=== PATIENT | male | born 2000 | race Caucasian/White ===

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

== ENCOUNTER 2020-06-15 20:15 | Emergency (ER) | payer BC, SELFPAY ==
[2020-06-15 20:19] VITALS: BP 143/95; PULSE 121; RESP 16; TEMP 36.9; O2SAT 99
--- NOTE | 2020-06-15 20:33 | ED.ABDPAIN ---
HPI - Abdominal Pain General Chief Complaint: Abdominal Pain Stated Complaint: stomach and lower intestine pain Time Seen by Provider: 06/15/20 20:19 Source: patient Mode of arrival: ambulatory Limitations: no limitations History of Present Illness HPI narrative: Patient presents with acute exacerbation of chronic LLQ abdominal pain that is at times accompanied by nausea and diarrhea which has worsened over the past two days. Patient states he has had these intermittent symptoms off and on for years. He states he has a GI appointment but couldn't sleep tonight so he came to the ER. Patient has not had vomiting. Related Data Home Medications Medication Instructions Recorded Confirmed Marijuana DAILY 11/20/19 hyoscyamine sulfate mg 06/15/20 06/15/20 Allergies Allergy/AdvReac Type Severity Reaction Status Date / Time Sulfa (Sulfonamide AdvReac Mild Anxiety Verified 06/15/20 20:24 Antibiotics) Review of Systems Review of Systems: Narrative: CONSTITUTIONAL: Denies fever, chills, or sweats. EYES: Denies visual changes, redness, or discharge. ENT: Denies rhinorrhea, congestion, sore throat, or otalgia. CARDIOVASCULAR: Denies chest pain, palpitations, or edema. RESPIRATORY: Denies cough or dyspnea. GASTROINTESTINAL: reports abdominal pain, nausea Denies vomiting, or diarrhea. GENITOURINARY: Denies dysuria or hematuria. SKIN: Denies rash or itching. MUSCULOSKELETAL: Denies back pain, myalgia, or joint pain NEUROLOGIC: Denies headache, numbness, dizziness, or weakness. PSYCHIATRIC: Denies anxiety or depression. [facility] Family History Family History Other Diabetes mellitus Hypertension Social History Social History (Updated 11/20/19 @ 16:24 by Beth Centeno CNP) Smoking status: Former smoker Alcohol intake: former Other substance usage details: Currently in medical marijuana program Gender identity (if verbalized by the patient): Male Exam Narrative: Exam Narrative: GENERAL: Well-appearing, well-nourished. HEAD: Normocephalic, atraumatic. EYES: PERRLA and EOMI. NECK: No loss of ROM. CHEST: Clear to auscultation. No respiratory distress. No wheezes rales or rhonchi HEART: Regular rate and rhythm. Normal peripheral pulses. ABDOMEN: Soft, nontender, nondistended, normal active bowel sounds. EXTREMITIES: No acute changes in ROM. No edema. SKIN: Warm, dry, no rash. NEURO: No focal deficits. Alert and oriented x3. PSYCH: Normal mood and affect. Course Vital Signs Vital signs: Vital Signs Temperature 98.5 F 06/15/20 20:19 Pulse Rate 121 H 06/15/20 20:19 Respiratory Rate 16 06/15/20 20:19 Blood Pressure 143/95 H 06/15/20 20:19 Pulse Oximetry 99 06/15/20 20:19 Temperature 98.5 F 06/15/20 20:19 Pulse Rate 121 H 06/15/20 20:19 Respiratory Rate 16 06/15/20 20:19 Blood Pressure 143/95 H 06/15/20 20:19 Pulse Oximetry 99 06/15/20 20:19 MDM - Abdominal Pain MDM Narrative Medical decision making narrative: Patient has pulled out his IV, is writhing around in the bed stating he is in pain but refusing to allow the nurse to restart the IV. He states he wants to sign out AMA. Patient has been told that we are working up his complaints and that we are waiting for CMP to make sure he can handle CT with contrast. Patient is adamant about signing out AMA despite warning he could have worsened condition or even and he verbalizes understanding. Differential Diagnosis Differential diagnosis: Likely abdominal pain, acute appendicitis, calculus of kidney, constipation, diverticulitis, endometriosis, gastroenteritis, pancreatitis and small bowel obstruction Lab Data Result diagrams: 06/15/20 20:38 06/15/20 20:38 Labs: Lab Results 06/15/20 06/15/20 06/15/20 Range/Units 20:38 20:38 20:38 WBC 14.9 H (4.5-10.0) K/mm3 RBC 4.85 (4.6-6.20) M/mm3 Hgb 16.1 (14.0-18.0) g/dL
[2020-06-15] MEDS: SODIUM CHLORIDE 0.9% IV 1,000 ML 999 ML IV CONT (20:39)
[2020-06-15] MEDS: METOCLOPRAMIDE HCL INJ 10 MG/2 ML VIAL IV PUSH (20:39)
[2020-06-15 20:43] LABS: Basophils Percent Auto 0.2 % (0.2-1.2); Eosinophils Percent Auto 0.1 % (0-4.4); Hematocrit 45.6 % (42.0-52.0); Hemoglobin 16.1 g/dL (14.0-18.0); Immature Granulocyte Absolute 0.06 K/mm3 (0.00-0.031); Immature Granulocyte Percent A 0.4 % (0-0.5); Lymphocytes Absolute Auto 1.25 K/mm3 (0.9-3.2); Lymphocytes Percent Auto 8.4 % (18.3-44.2); Mean Corpuscular HGB Conc 35.3 g/dl (32-36); Mean Corpuscular Hemoglobin 33.2 pg (26-34); Mean Platelet Volume 9.8 fl (7.4-10.4); Monocytes Percent Auto 6.7 % (2.6-8.5); Neutrophils Absolute Auto 12.6 K/mm3 (1.3-6.7); Neutrophils Percent Auto 84.2 % (45.5-73.1); Platelet Count Result 263 k/mm3 (150-375); Red Blood Count 4.85 M/mm3 (4.6-6.20); Red Cell Distribution Width 11.9 % (11.5-14.5); White Blood Count 14.9 K/mm3 (4.5-10.0)
--- NOTE | 2020-06-15 20:50 | PC.NURSE ---
Pt IV came out. He was moving around in pain. I cleaned him up and told him we would need to start another IV. Pt said he does not want another IV. I spoke with EDP and she said he needs another IV to further treat him.
[2020-06-15 20:56] LABS: Lipase 68 U/L (23-300)
[2020-06-15 20:57] LABS: Alanine Aminotransferase 33 U/L (4-50); Albumin Level 4.4 g/dL (3.7-5.6); Alkaline Phosphatase 74 U/L (58-237); Anion Gap 10 mmol/L (8-16); Aspartate Amino Transferase 29 U/L (17-59); Bilirubin,Total 0.3 mg/dL (0.2-1.3); Blood Urea Nitrogen 16 mg/dL (8-21); Calcium 9.1 mg/dL (8.9-10.7); Carbon Dioxide 27 mmol/L (22-30); Chloride 101 mmol/L (98-107); Estimated CRCL calculation 115 ml/min; Estimated Glomerular Filt Rate > 60; Glucose 207 mg/dL (75-110); Potassium 4.1 mmol/L (3.4-5.0); Sodium 138 mmol/L (134-143)
--- NOTE | 2020-06-15 21:07 | PC.NURSE ---
Pt explained that we need another IV to get a CT on him especially since he is diaphoretic and has a white blood cell count. Pt still declined. Pt made aware that he would have to sign out against medical advice if he leaves. EDP made aware. Pt again explained leaving could result in worsening condition or . pt confirmed understanding but still chose to leave. Pt signed paperwork and left.
== END 2020-06-15 21:10 | disposition left against medical advice (07) ==
PROVIDERS: Physician Assistant; Emergency Provider Emergency Medicine; PCP Pediatrics
DX: R10.32 Left lower quadrant pain (principal)
CPT/HCPCS: 36415; 80053; 83690; 85025; 96374; 99284; J2765; J7030

== ENCOUNTER 2020-07-16 09:10 | Emergency (ER) | payer BC, SELFPAY ==
--- NOTE | ~2020-07-16 | CT_ITS ---
EXAMINATION: CT abdomen pelvis w con DATE: 07/16/2020 10:11 INDICATION: Low abdominal pain. TECHNIQUE: Computed tomography (CT) of the abdomen and pelvis was performed with 100 mL Omnipaque 350 intravenous contrast. Automated exposure control and iterative reconstruction technique were employe d. The dose-length product was 296.19 mGy-cm. COMPARISON: None. FINDINGS: The visualized portions of the lung bases are clear without pneumonia or pleural effusion. The heart size is normal. No pericardial effusion. The liver, gallbladder, spleen, pancreas, adrenal glands, and right kidney are normal. There is a 4 mm cyst in left kidney. There are no dilated loops of bowel. The appendix is normal. There are no pathologically enlarged lymph nodes. There is no free intraperitoneal fluid. The bones are unremarkable. IMPRESSION: 1. No etiology for the patient's symptoms. Reviewed, dictated and finalized at location B. ALARM INSPECTOR
[2020-07-16 09:15] VITALS: BP 138/90; PULSE 118; RESP 18; TEMP 36.3; O2SAT 99
[2020-07-16 09:34] LABS: Basophils Absolute Auto 0.1 K/mm3 (0.0-0.1); Basophils Percent Auto 0.4 % (0.2-1.2); Eosinophils Percent Auto 0.2 % (0-4.4); Hematocrit 48.3 % (42.0-52.0); Immature Granulocyte Absolute 0.05 K/mm3 (0.00-0.031); Immature Granulocyte Percent A 0.4 % (0-0.5); Lymphocytes Absolute Auto 1.49 K/mm3 (0.9-3.2); Lymphocytes Percent Auto 12.2 % (18.3-44.2); Mean Corpuscular HGB Conc 35.2 g/dl (32-36); Mean Corpuscular Hemoglobin 33.4 pg (26-34); Mean Corpuscular Volume 94.9 fl (80-100); Mean Platelet Volume 9.1 fl (7.4-10.4); Monocytes Percent Auto 8.1 % (2.6-8.5); Neutrophils Absolute Auto 9.6 K/mm3 (1.3-6.7); Neutrophils Percent Auto 78.7 % (45.5-73.1); Platelet Count Result 245 k/mm3 (150-375); Red Blood Count 5.09 M/mm3 (4.6-6.20); Red Cell Distribution Width 12.2 % (11.5-14.5); White Blood Count 12.2 K/mm3 (4.5-10.0)
[2020-07-16 09:46] LABS: Alanine Aminotransferase 90 U/L (4-50); Albumin Level 4.6 g/dL (3.5-5.1); Alkaline Phosphatase 72 U/L (38-126); Anion Gap 4 mmol/L (8-16); Aspartate Amino Transferase 38 U/L (17-59); Bilirubin,Total 0.5 mg/dL (0.2-1.3); Blood Urea Nitrogen 19 mg/dL (9-20); Calcium 9.4 mg/dL (8.4-10.2); Carbon Dioxide 33 mmol/L (22-30); Chloride 99 mmol/L (98-107); Estimated CRCL calculation 92 ml/min; Estimated Glomerular Filt Rate > 60; Glucose 119 mg/dL (75-110); Lipase 38 U/L (23-300); Potassium 4.4 mmol/L (3.4-5.0); Sodium 136 mmol/L (137-145)
[2020-07-16] MEDS: SODIUM CHLORIDE 0.9% IV 1,000 ML 999 ML IV CONT (09:48)
[2020-07-16] MEDS: METOCLOPRAMIDE HCL INJ 10 MG/2 ML VIAL IV PUSH (09:48)
[2020-07-16 09:58] LABS: Add Urine Microscopic? NO; Appearance Urine Clear (Clear); Bilirubin Urine Negative (Negative); Blood Urine Negative (Negative); Color Urine Yellow (Yellow); Glucose Urine UA Negative (Negative); Ketones Urine Negative (Negative); Leukocyte Esterase Ur Negative LEU/UL (Negative); Nitrate Urine Negative (Negative); Protein Urine Negative (Negative); Specific Grav Ur 1.017 (1.001-1.035); Urobilinogen Urine Negative mg/dL (<2.0)
--- NOTE | 2020-07-16 11:09 | ED.GENADULT ---
HPI - General Adult General Chief complaint: Abdominal Pain Stated complaint: abd pain, decreased appetite Time Seen by Provider: 07/16/20 09:31 History of Present Illness HPI narrative: Patient is a 20-year-old gentleman who presents the emergency department with chief complaint of left lower quadrant abdominal pain. Patient reports he has history of IBS and takes Levsin and also is on a fiber supplement. The patient states that he started having cramping in his abdomen reports no blood in his bowel movements reports no problems urinating denies fever. Patient states he took the Levsin and his pain is doing much better at this time patient reports he has a appointment with his GI doctor in the first part of July. Patient states that today the pain was a little bit improved with the Levsin but states he was still very uncomfortable. Patient denies vomiting or diarrhea Related Data Home Medications Medication Instructions Recorded Confirmed Marijuana DAILY 11/20/19 hyoscyamine sulfate mg 06/15/20 06/15/20 Allergies Allergy/AdvReac Type Severity Reaction Status Date / Time Sulfa (Sulfonamide AdvReac Mild Anxiety Verified 07/16/20 09:26 Antibiotics) Review of Systems Review of Systems: Narrative: A 10 system review of systems was completed on the patient and is negative except for what is stated in the HPI. Nursing and ancillary documentation was reviewed. [facility] Family History Family History Other Diabetes mellitus Hypertension Social History Social History Smoking status: Former smoker Alcohol intake: former Other substance usage details: Currently in medical marijuana program Gender identity (if verbalized by the patient): Male Exam Narrative: Exam Narrative: GENERAL: Well-appearing, well-nourished, and in no acute distress. HEAD: Normocephalic, atraumatic. EYES: PERRLA and EOMI. ENT: Nares clear, no rhinorrhea or epistaxis. Mucous membranes moist. NECK: Supple. CHEST: Clear to auscultation. No respiratory distress. HEART: Regular rate and rhythm. No murmur heard. Normal peripheral pulses. ABDOMEN: Soft, nontender, nondistended, normal active bowel sounds. EXTREMITIES: Normal range of motion. No edema. SKIN: Warm, dry, no rash. NEURO: No focal deficits. Alert and oriented x3. PSYCH: Normal mood and affect. Course Course Emergency Course: CT scan of the abdomen pelvis showed no evidence of acute intra-abdominal pathology. Laboratory studies are within normal limits. Patient was feeling much better after IV Reglan and IV fluids. Vital Signs Vital signs: Vital Signs Temperature 36.3 C L 07/16/20 09:15 Pulse Rate 118 H 07/16/20 09:15 Respiratory Rate 18 07/16/20 09:15 Blood Pressure 138/90 07/16/20 09:15 Pulse Oximetry 99 07/16/20 09:15 Temperature 36.3 C L 07/16/20 09:15 Pulse Rate 118 H 07/16/20 09:15 Respiratory Rate 18 07/16/20 09:15 Blood Pressure 138/90 07/16/20 09:15 Pulse Oximetry 99 07/16/20 09:15 Medical Decision Making Vital Signs Vital Signs: Vital Signs Temperature 36.3 C L 07/16/20 09:15 Pulse Rate 118 H 07/16/20 09:15 Respiratory Rate 18 07/16/20 09:15 Blood Pressure 138/90 07/16/20 09:15 Pulse Oximetry 99 07/16/20 09:15 Temperature 36.3 C L 07/16/20 09:15 Pulse Rate 118 H 07/16/20 09:15 Respiratory Rate 18 07/16/20 09:15 Blood Pressure 138/90 07/16/20 09:15 Pulse Oximetry 99 07/16/20 09:15 Lab Data Result diagrams: 07/16/20 09:28 07/16/20 09:28 Labs: Lab Results 07/16/20 07/16/20 07/16/20 Range/Units 09:28 09:28 09:51 WBC 12.2 H (4.5-10.0) K/mm3 RBC 5.09 (4.6-6.20) M/mm3 Hgb 17.0 (14.0-18.0) g/dL Hct 48.3 (42.0-52.0) % MCV 94.9 (80-100) fl MCH 33.4 (26-34) pg MCHC 35.2 (32-36) g/dl RDW 1
[2020-07-16 11:29] VITALS: BP 132/76; PULSE 97; RESP 16; O2SAT 100
== END 2020-07-16 11:30 | disposition home or self-care (01) ==
PROVIDERS: Emergency Provider Emergency Medicine; Family Provider Pediatrics; PCP Pediatrics
DX: R10.84 Generalized abdominal pain (principal); Z87.891 Personal history of nicotine dependence
CPT/HCPCS: 36415; 74177; 80053; 81003; 83690; 85025; 96361; 96374; 99284; J2765; J7030; Q9967

== ENCOUNTER 2020-08-05 08:28 | Outpatient (CLI) | payer BC, SELFPAY ==
--- NOTE | ~2020-08-05 | XR_ITS ---
EXAMINATION: XR UGIAC wo kub DATE: 08/05/2020 09:13 INDICATION: Irritable bowel syndrome without diarrhea, abdominal pain TECHNIQUE: The patient drank thick barium, gas-producing crystals, and thin barium. Conventional supi ne abdomen radiographs and fluoroscopy of the esophagus, stomach, and proximal small bowel were perfo rmed. Fluoroscopy exposure time was 2.5 minutes. The DAP for this procedure was 13.029 Gycm2. COMPARISON: None. FINDINGS: There is no mass or stricture of the esophagus. Esophageal motility is normal. There is no hiatal hernia. There was a moderate amount of spontaneous gastroesophageal reflux. The stomach and pr oximal small bowel show normal folding patterns. IMPRESSION: 1. Moderate amount of spontaneous gastroesophageal reflux. Reviewed, dictated and finalized at location A. R CRANE OPERATOR
== END 2020-08-05 08:29 | disposition home or self-care (01) ==
PROVIDERS: PCP Family Medicine; Visit Provider Internal Medicine Gastroenterology
DX: K58.9 Irritable bowel syndrome, unspecified (principal); K21.9 Gastro-esophageal reflux disease without esophagitis
CPT/HCPCS: 74246

== ENCOUNTER 2023-01-24 09:36 | Emergency (ER) | payer BC, SELFPAY ==
[2023-01-24] VITALS (19 sets, daily range): BP systolic 141–167; BP diastolic 96–118; PULSE 105–128; RESP 12–22; TEMP 36.3; O2SAT 97–100
--- NOTE | 2023-01-24 09:48 | ED.ALCOHOL ---
HPI - Alcohol General Chief Complaint: Alcohol Stated Complaint: ETOH withdrawl Time Seen by Provider: 01/24/23 09:38 History of Present Illness HPI narrative: 22-year-old male no medical problems presents to the emergency room for evaluation of alcohol intoxication. Patient states that this morning he had a bottle of wine, multiple beers, multiple shots of grain alcohol. Patient is alert and oriented x3 and accompanied by his mother. Patient states that he drinks in excess for over a year. States I have a good job and a good life, and I do not want to throw it away . Patient denies any history of DTs or loss of consciousness due to his drinking. Related Data Allergies Allergy/AdvReac Type Severity Reaction Status Date / Time Sulfa (Sulfonamide AdvReac Mild Anxiety Verified 01/24/23 09:44 Antibiotics) Review of Systems Review of Systems: CONSTITUTIONAL: Denies fever, chills, or sweats. EYES: Denies visual changes, redness, or discharge. ENT: Denies rhinorrhea, congestion, sore throat, or otalgia. CARDIOVASCULAR: Denies chest pain, palpitations, or edema. RESPIRATORY: Denies cough or dyspnea. GASTROINTESTINAL: Reports generalized abdominal pain. Denies nausea, vomiting, or diarrhea. GENITOURINARY: Denies dysuria or hematuria. SKIN: Denies rash or itching. MUSCULOSKELETAL: Denies back pain, joint pain, or myalgia. NEUROLOGIC: Denies headache, numbness, dizziness, or weakness. PSYCHIATRIC: Denies anxiety or depression. [facility] Family History Family History Other Diabetes mellitus Hypertension Social History Social History Smoking status: Former smoker Alcohol intake: former Other substance usage details: Currently in medical marijuana program Gender identity (if verbalized by the patient): Male Exam Narrative: GENERAL: Well-appearing, well-nourished, no physical limitations, and in no acute distress. HEAD: Normocephalic, atraumatic. EYES: Conjunctivae normal, PERRLA and EOMI. CHEST: Clear to auscultation. No respiratory distress. No wheezes rales or rhonchi. HEART: Regular rate and rhythm. No murmur heard. Normal peripheral pulses. ABDOMEN: Soft, nontender, nondistended, normal active bowel sounds. EXTREMITIES: Normal range of motion. No edema. No clubbing or cyanosis SKIN: Warm, dry, no rash. No noted wounds. NEURO: No focal deficits. Alert and oriented x3. MAEW. CN's II-XI intact bilaterally, normal gait PSYCH: Cooperative. Normal mood and affect. Course Vital Signs Vital signs: Vital Signs Temperature 36.3 C L 01/24/23 09:40 Pulse Rate 116 H 01/24/23 09:40 Respiratory Rate 16 01/24/23 09:40 Blood Pressure 167/109 H 01/24/23 09:40 Pulse Oximetry 100 01/24/23 09:40 Oxygen Delivery Room Air 01/24/23 09:40 Temperature 36.3 C L 01/24/23 09:40 Pulse Rate 111 H 01/24/23 11:15 Respiratory Rate 13 01/24/23 11:15 Blood Pressure 141/118 H 01/24/23 11:01 Pulse Oximetry 99 01/24/23 11:00 Oxygen Delivery Room Air 01/24/23 09:40 MDM - Alcohol MDM Narrative Medical decision making narrative: 22-year-old patient presented to the ED with alcohol withdrawal, stating his last drink was 2 hours prior to arrival. Patient was tachycardic with no tremors noted. Patient denied any tactile, auditory or visual hallucinations. Alert and oriented x3. Patient denies any history of withdrawal seizures or DTs. Patient was treated with 1 mg of Ativan, 2 L of normal saline, and thiamine. Clinical coordination was present at the bedside to evaluate and offer resources to the patient. Patient was discharged in stable condition with his mother. Lab Data 01/24/23 09:49 01/24/23 09:49 Labs: Lab Results 01/24/23 01/24/23 Range/Units 09:49 10:04 WBC 9.1 (4.5-10.0) K/mm3 RBC 5.61 (4.6-6.20) M/mm3 Hgb 19.2 H
[2023-01-24] MEDS: SODIUM CHLORIDE 0.9% IV 1,000 ML 999 ML IV CONT ×2 (09:51→11:11)
[2023-01-24] MEDS: THIAMINE HCL 200 MG/2 ML VIAL 100 MG IV PUSH (09:53)
[2023-01-24 10:07] LABS: Alanine Aminotransferase 97 U/L (6-50); Albumin Level 4.8 g/dL (3.5-5.1); Alkaline Phosphatase 75 U/L (38-126); Anion Gap 14 mmol/L (8-16); Aspartate Amino Transferase 62 U/L (17-59); Bilirubin,Total 0.6 mg/dL (0.2-1.3); Blood Urea Nitrogen 13 mg/dL (9-20); Calcium 9.7 mg/dL (8.4-10.2); Carbon Dioxide 29 mmol/L (22-30); Chloride 92 mmol/L (98-107); Estimated CRCL calculation 102 ml/min; Estimated Glomerular Filt Rate > 60; Ethanol 197 mg/dL (<10); Glucose 127 mg/dL (65-110); Magnesium 1.9 mg/dL (1.6-2.3); Potassium 3.9 mmol/L (3.4-5.0); Sodium 135 mmol/L (137-145)
[2023-01-24 10:12] LABS: Basophils Absolute Auto 0.1 K/mm3 (0.0-0.1); Basophils Percent Auto 0.7 % (0.2-1.2); Eosinophils Percent Auto 0.1 % (0-4.4); Hematocrit 53.5 % (42.0-52.0); Hemoglobin 19.2 g/dL (14.0-18.0); Immature Granulocyte Absolute 0.03 K/mm3 (0.00-0.031); Immature Granulocyte Percent A 0.3 % (0-0.5); Lymphocytes Absolute Auto 1.49 K/mm3 (0.9-3.2); Lymphocytes Percent Auto 16.3 % (18.3-44.2); Mean Corpuscular HGB Conc 35.9 g/dl (32-36); Mean Corpuscular Hemoglobin 34.2 pg (26-34); Mean Corpuscular Volume 95.4 fl (80-100); Mean Platelet Volume 8.9 fl (7.4-10.4); Monocytes Absolute Auto 0.7 K/mm3 (0.1-0.6); Monocytes Percent Auto 7.1 % (2.6-8.5); Neutrophils Absolute Auto 6.9 K/mm3 (1.3-6.7); Neutrophils Percent Auto 75.5 % (45.5-73.1); Platelet Count Result 315 k/mm3 (150-375); Red Blood Count 5.61 M/mm3 (4.6-6.20); Red Cell Distribution Width 12.2 % (11.5-14.5); White Blood Count 9.1 K/mm3 (4.5-10.0)
[2023-01-24 10:19] LABS: Appearance Urine Cloudy (Clear); Bacteria Urine None Seen /hpf; Bilirubin Urine Negative (Negative); Blood Urine Negative (Negative); Color Urine Yellow (Yellow); Glucose Urine UA Negative (Negative); Ketones Urine Trace mg/dL (Negative); Leukocyte Esterase Ur Negative LEU/UL (Negative); Nitrate Urine Negative (Negative); Non Pathogenic Casts 0-2; Protein Urine 2+ mg/dL (Negative); RBC Urine 0-2 /hpf (0-2); Specific Grav Ur 1.024 (1.001-1.035); Squamous Epithelial Cell Urine None seen /hpf (Few); WBC Urine 0-5 /hpf; pH Urine 7.5 (5.0-9.0)
[2023-01-24 10:38] LABS: Add Urine Microscopic? YES
[2023-01-24] MEDS: LORazepam INJ (*CRX) 2 MG/ML VIAL 1 MG IV PUSH (11:11)
--- NOTE | 2023-01-24 14:17 | PCCCNOTE ---
met with patient bedside, provider reached out to cc for alcohol resources per patients request. patient is alert and oriented x 4. mother at bedside, permission granted to CC to speak in front of mother. patient stated he has drank daily for 1+ years. patient is willing to get help. CC gave facesheet to Alphonse with [employer], and also gave business card and resources to patient. CC will continue to follow for any other needs that may arise.
== END 2023-01-24 13:16 | disposition home or self-care (01) ==
PROVIDERS: Emergency Provider Nurse Practitioner Family; PCP Family Medicine
DX: F10.930 Alcohol use, unspecified with withdrawal, uncomplicated (principal)
CPT/HCPCS: 36415; 80053; 80307; 81001; 83735; 85025; 96361; 96374; 96375; 99284; J2060; J3411; J7030